=== PATIENT | female | born 1950 | race Caucasian/White ===

== ENCOUNTER → 2020-08-24 | Outpatient (CLI) | payer OTHER ==
[~2020-08-24] MED LIST: ACID CONTROL20 MG PO; ALBUTEROL INHAL17 GM IH; AMBIEN 10 MG TA10 MG PO; ASPIRIN325 PO; BUPRENORPHINE HC2 MG; BYSTOLIC10 MG PO; CARAFATE1 GM/10 ML PO; CLONIDINE HCL0.2 M2; DILAUDID 4 MG TA4 M1 PO; FLECAINIDE ACE100 MG PO; LEVAQUIN 500 M500 MG PO; LISINOPRIL10 MG PO; MEGESTROL ACETA20 MG; METOCLOPRAMIDE10 MG PO; MIRALAX255 GM PO; NEXIUM40 MG PO; NORCO 5-325 TA1 EACH PO; PEPCID40 MG; PERCOCET 10-321 EACH; PERCOCET 5-3251 EACH PO; PHENERGAN 25 MG25 M1 PO; PROAIR HFA8.5 GM INH; PROTONIX40 MG PO; REGLAN 10 MG TA10 MG; ZANTAC 150MG T150 M1 PO; ZPAK PO
== END ==
LOC: SJCVC 11:07
PROVIDERS: ATTEND Internal Medicine
DX: I49.1 Atrial premature depolarization (principal); I48.0 Paroxysmal atrial fibrillation; I10 Essential (primary) hypertension; J84.10 Pulmonary fibrosis, unspecified; E78.5 Hyperlipidemia, unspecified; K31.84 Gastroparesis; F03.90 Unspecified dementia, unspecified severity, without behavioral disturbance, psychotic disturbance, mood disturbance, and anxiety; Z79.899 Other long term (current) drug therapy

== ENCOUNTER → 2021-05-05 | Outpatient (CLI) | payer OTHER | LOC: SJCVCIMAG 08:39 | PROVIDERS: ATTEND Internal Medicine | DX: I44.0 Atrioventricular block, first degree (principal); I49.3 Ventricular premature depolarization; I48.0 Paroxysmal atrial fibrillation; I10 Essential (primary) hypertension; J84.10 Pulmonary fibrosis, unspecified; E78.5 Hyperlipidemia, unspecified; K31.84 Gastroparesis; F03.90 Unspecified dementia, unspecified severity, without behavioral disturbance, psychotic disturbance, mood disturbance, and anxiety; G89.4 Chronic pain syndrome; Z88.8 Allergy status to other drugs, medicaments and biological substances; Z79.82 Long term (current) use of aspirin; Z79.899 Other long term (current) drug therapy; Z82.49 Family history of ischemic heart disease and other diseases of the circulatory system ==

== ENCOUNTER → 2021-08-23 | Outpatient (CLI) | payer OTHER | LOC: SJCVC 09:53 | PROVIDERS: ATTEND Internal Medicine | DX: R00.1 Bradycardia, unspecified (principal); I48.0 Paroxysmal atrial fibrillation; I10 Essential (primary) hypertension; J84.10 Pulmonary fibrosis, unspecified; E78.5 Hyperlipidemia, unspecified; K31.84 Gastroparesis; F03.90 Unspecified dementia, unspecified severity, without behavioral disturbance, psychotic disturbance, mood disturbance, and anxiety; Z79.899 Other long term (current) drug therapy; Z79.82 Long term (current) use of aspirin; Z88.1 Allergy status to other antibiotic agents ==